=== PATIENT | female | born 1955 | race Two or more races ===

== ENCOUNTER → 2025-05-10 | Outpatient (CLI) | payer OTHER, SELFPAY ==
[2025-05-10 10:01] LABS: Collection Type, Urine Clean Catch
[2025-05-10 10:32] LABS: Basophils # (Auto) 0.0 Thou/mm3 (0.0-0.2); Basophils % (Auto) 0 % (0-2.5); Eosinophils # (Auto) 0.1 Thou/mm3 (0.0-0.5); Eosinophils % (Auto) 3 % (0-10); Hematocrit 35.9 % (36.0-46.0); Hemoglobin 11.4 g/dL (12.0-16.0); Immature Granulocytes Auto 0.01 Thou/mm3 (0.00-0.00); Lymphocytes # (Auto) 1.6 Thou/mm3 (1.0-4.8); Lymphocytes % (Auto) 31 % (10-50); Mean Corpuscular HGB Conc 31.8 g/dl (31.0-37.0); Mean Corpuscular Hemoglobin 28.9 pg (25.0-35.0); Mean Corpuscular Volume 91 fL (80-100); Monocytes # (Auto) 0.4 Thou/mm3 (0.0-0.8); Monocytes % (Auto) 7 % (0-12); Neutrophils # (Auto) 3.1 Thou/mm3 (1.8-7.7); Neutrophils % (Auto) 59 % (37-80); Nucleated Red Blood Cell # 0.00 Thou/mm3 (0.00-0.00); Nucleated Red Blood Cell % 0 /100 WBC (0); Platelet Count 175 Thou/mm3 (140-440); RDW Standard Deviation 45.0 fL (36.4-46.3); Red Blood Count 3.95 Miln/mm3 (4.00-5.20); White Blood Count 5.2 Thou/mm3 (3.6-11.0)
[2025-05-10 10:38] LABS: Bilirubin,Urine Negative (Negative); Blood,Urine Negative (Negative); Clarity,Urine Clear (Clear/Hazy); Color,Urine Lt-Yellow (Lt Yel-Yel); Culture Indicated,Urine Not Indicated; Glucose, Urine Negative (Negative); Ketones,Urine Negative (Negative); Leukocyte Esterase,Urine Positive (Negative); Nitrite,Urine Negative (Negative); PH,Urine 6.0 (5.0-7.0); Protein,Urine Negative (Neg - Trace); RBC,Urine 1 /hpf (0-3); Specific Gravity,Urine 1.023 (1.001-1.035); Squamous Epithelial Cell,Urine 1 /hpf (0-5); Urobilinogen,Urine Negative mg/dL (0.0-1.0); WBC,Urine 3 /hpf (0-5)
[2025-05-10 10:44] LABS: Glucose Estimated Average 114 mg/dL (80-131); Hemoglobin A1C 5.6 % Hgb (4.8-6.0)
[2025-05-10 10:52] LABS: Alanine Aminotransferase 18 U/L (10-49); Albumin, Serum 4.2 gm/dL (3.4-4.8); Albumin/Globulin Ratio 1.5 (1.2-2.2); Alkaline Phosphatase 144 U/L (46-116); Anion Gap 9 (7-16); Aspartate Amino Transferase 22 U/L (0-34); BUN/Creatinine Ratio 15 Ratio (12-20); Bilirubin,Total 0.4 mg/dL (0.3-1.2); Blood Urea Nitrogen 15 mg/dL (9-23); Calcium 9.3 mg/dL (8.3-10.6); Calcium (Corrected) 9.3 mg/dL (8.5-10.1); Carbon Dioxide 28.3 mMol/L (20.0-31.0); Cardiac Risk Estimate 3.0 RATIO (3.7-5.6); Chloride 108 mMol/L (98-107); Cholesterol 136 mg/dL (132-200); Creatinine (Component) 1.0 mg/dL (0.6-1.3); Globulin 2.8 gm/dL (2.3-3.5); Glucose 102 mg/dL (74-106); HDL Cholesterol 46 mg/dL (40-60); LDL Cholesterol,Calculated 67 mg/dL (0-130); Osmolality,Calculated 289 (275-295); Potassium 4.4 mMol/L (3.4-5.1); Sodium 145 mMol/L (136-145); Thyroid Stimulating Hormone 2.66 uIU/mL (0.55-4.78); Total Protein 7.0 gm/dL (5.7-8.2); Triglycerides 113 mg/dL (30-150); eGFR > 60 See Note
[2025-05-10 10:56] LABS: Creatinine MALB Rnd Ur 148 mg/dL (30-125); Microalbumin Creat Ratio 2 mg/gCrea (<30); Microalbumin, Random Urine 3 mg/L (0-300)
[2025-05-10 10:59] LABS: Vitamin B12 370 pg/mL (211-911)
== END | disposition home or self-care (01) ==
PROVIDERS: PCP Nurse Practitioner Family; Referring Provider Nurse Practitioner Family; Visit Provider Nurse Practitioner Family
DX: Z00.00 Encounter for general adult medical examination without abnormal findings (principal); I10 Essential (primary) hypertension; E78.5 Hyperlipidemia, unspecified; R73.03 Prediabetes
CPT/HCPCS: 36415; 80053; 80061; 81001; 82043; 82570; 82607; 83036; 84443; 85025

== ENCOUNTER → 2025-05-25 | Outpatient (CLI) | payer OTHER, SELFPAY ==
--- NOTE | 2025-05-25 13:45 | XR_ITS ---
Examination: Screening digital mammography, bilateral Computer aided detection 3-D breast Tomosynthesis, bilateral Date and time of exam: May 25, 2025 1333 hours Comparison April 19, 2024 Indication: Screening Technique: Nonmagnified MLO, CC views of the breasts to been obtained, reconstructed from 3-D Tomosynthesis images. R2 computer aided detection program utilized for evaluation of suspicious masses and/or abnormal calcifications. 3-D Tomosynthesis images obtained. Findings: The breasts are heterogeneously dense, which may obscure small masses 20 mm nodule inner right breast again depicted Also 8mm focal asymmetry 12:00 position left breast Impression: BI-RADS Category 0: Incomplete: Need additional imaging evaluation Recommend follow-up spot tomographic views 20 mm nodule inner right breast and 8mm focal asymmetry 12:00 position left breast Recommend bilateral breast sonography to complete the workup
== END | disposition home or self-care (01) ==
LOC: CDIM 13:20
PROVIDERS: Referring Provider Nurse Practitioner Family; Visit Provider Nurse Practitioner Family
DX: Z12.31 Encounter for screening mammogram for malignant neoplasm of breast (principal); N63.10 Unspecified lump in the right breast, unspecified quadrant; N64.89 Other specified disorders of breast
CPT/HCPCS: 77063; 77067

== ENCOUNTER → 2025-06-01 | Outpatient (CLI) | payer OTHER, SELFPAY ==
--- NOTE | 2025-06-01 09:54 | XR_ITS ---
Examination:Left hip AP, lateral, AP pelvis 3 views Technique: Hip AP lateral, AP pelvis, 3 views Exam date and time:June 01, 2025 1038 hours INDICATIONS: Onset left hip pain beginning yesterday. FINDINGS: No left hip fracture or dislocation Right hip bones of the pelvis intact Mild bilateral hip joint narrowing IMPRESSION: Mild bilateral hip joint narrowing.
--- NOTE | 2025-06-01 09:54 | XR_ITS ---
Examination: Knee, left , 3 views Technique: Knee AP, lateral, oblique 3 views Date and time of exam: June 01, 2025 1038 hours INDICATIONS: Left knee pain beginning yesterday. FINDINGS: Mild tricompartment osteoarthritis. No fracture. Small knee effusion IMPRESSION: Mild tricompartment osteoarthritis
== END | disposition home or self-care (01) ==
PROVIDERS: PCP Nurse Practitioner Family; Referring Provider Nurse Practitioner Family; Visit Provider Nurse Practitioner Family
DX: M25.852 Other specified joint disorders, left hip (principal); M17.12 Unilateral primary osteoarthritis, left knee
CPT/HCPCS: 73502; 73562

== ENCOUNTER → 2025-07-13 | Outpatient (CLI) | payer OTHER, SELFPAY ==
--- NOTE | 2025-07-13 10:15 | XR_ITS ---
Examination: Breast ultrasound complete, bilateral Date and time of exam: July 13, 2025 1030 hours INDICATIONS: Mammogram May 25, 2025 20 mm nodule inner right breast 8mm focal asymmetry 12:00 position left breast Technique: Real-time grayscale ultrasonographic imaging bilateral breasts, including all 4 quadrants as well as nipple retroareolar and axillary regions. Findings: Sonographic images right breast 12:00 nodule lobular margins 15 x 9 mm 5:00 cyst 21 x 22 mm Sonographic images left breast Retroareolar cyst 4 x 5 mm No solid nodules IMPRESSION: BI-RADS Category 3: Probably benign findings One additional 6 month right breast sonogram follow-up is needed to document stability of 12:00 nodule right breast described above
--- NOTE | 2025-07-13 11:15 | XR_ITS ---
Examination: Diagnostic digital mammography, bilateral Computer aided detection 3-D breast Tomosynthesis, bilateral Date and time of exam: July 13, 2025 1050 hours INDICATIONS: Mammogram May 25, 2025 20 mm nodule inner right breast 8mm focal asymmetry 12:00 position left breast Technique: Nonmagnified MLO, CC views of the breasts to been obtained, reconstructed from 3-D Tomosynthesis images. R2 computer aided detection program utilized for evaluation of suspicious masses and/or abnormal calcifications. 3-D Tomosynthesis images obtained. Findings: The breasts are heterogeneously dense, which may obscure small masses 3:00 circumscribed mass right breast 20 mm corresponding to benign cysts described on ultrasound study today No suspicious left breast mass noted Impression: BI-RADS Category 2: Benign findings Recommend yearly follow-up mammography Please see the bilateral breast sonography report and recommendations today.
== END | disposition home or self-care (01) ==
PROVIDERS: PCP Nurse Practitioner Family; Referring Provider Nurse Practitioner Family; Visit Provider Nurse Practitioner Family
DX: R92.323 Mammographic fibroglandular density, bilateral breasts (principal); N63.25 Unspecified lump in the left breast, overlapping quadrants; N63.15 Unspecified lump in the right breast, overlapping quadrants; N64.89 Other specified disorders of breast
CPT/HCPCS: 76641; 77062; 77066; G0279

== ENCOUNTER 2025-08-21 08:30 | Day surgery (SDC) | payer OTHER, SELFPAY ==
[2025-08-18 15:30] VITALS: BMI 34.3
[2025-08-21] VITALS (10 sets, daily range): BP systolic 115–172; BP diastolic 74–99; PULSE 63–92; RESP 12–18; TEMP 36.3–36.8; O2SAT 93–100; BMI 34.0
[2025-08-21] MEDS: SODIUM CHLORIDE 0.9% 500 ML 500 ML 20 ML IV (10:59)
[2025-08-21] MEDS: MIDAZOLAM INJ 1 MG/ML VIAL 2 ML (ASD USE ONLY) 2 MG IVP (10:59)
[2025-08-21] MEDS: fentaNYL CIT INJ 50 mCg/ML AMP 2ML (ASD USE ONLY) IVP (10:59)
== END 2025-08-21 11:50 | disposition home or self-care (01) ==
PROVIDERS: PCP Nurse Practitioner Family; Referring Provider Specialist; Visit Provider Specialist
PROC: 0DBE8ZX Excision of Large Intestine, Via Natural or Artificial Opening Endoscopic, Diagnostic (ICD-10-PCS; CPT 45380; principal; 2025-08-21 09:00)
DX: Z12.11 Encounter for screening for malignant neoplasm of colon (principal); K64.1 Second degree hemorrhoids; K63.89 Other specified diseases of intestine
CPT/HCPCS: G0121; A4217; A4649; J1200; J2250; J3010; J7999